=== PATIENT | male | born 1995 | race Caucasian/White ===

== ENCOUNTER 2016-12-13 17:53 | Emergency (ER) | payer BC ==
[~2016-12-13] VITALS: Ht 177.8 cm; Wt 79.1 kg
[2016-12-13] MEDS ORDERED: [UNRECOGNIZED DRUG - OTHER] PO (18:56)
[2016-12-13] MEDS ORDERED: AZITHROMYCIN PO (18:56)
[2016-12-13 19:14] VITALS: BP 124/84
== END 2016-12-13 19:21 | disposition home or self-care (01) ==
LOC: ED 17:53
DX: Z11.8 Encounter for screening for other infectious and parasitic diseases (principal); Z20.2 Contact with and (suspected) exposure to infections with a predominantly sexual mode of transmission; A74.9 Chlamydial infection, unspecified